=== PATIENT | male | born 1985 | race Caucasian/White ===

== ENCOUNTER 2024-03-31 21:58 | Emergency (ER) | payer OTHER ==
[~2024-03-31] VITALS: Ht 182.9 cm; Wt 86.2 kg
[2024-04-01] MEDS ORDERED: ACETAMINOPHEN ES 500 MG TABLET ONE (00:02)
[2024-04-01] MEDS ORDERED: IBUPROFEN 400 MG TABLET ONE (00:02)
[2024-04-01] MEDS: IBUPROFEN 400 MG TABLET PO ONE (00:06)
[2024-04-01] MEDS: ACETAMINOPHEN ES 500 MG TABLET PO ONE (00:06)
[2024-04-01] MEDS ORDERED: KETO10TA2 PO (01:35)
[2024-04-01] MEDS ORDERED: ACET-2030 PO (01:35)
[2024-04-01 01:50] VITALS: BP 130/72; TEMP 98.1; O2SAT 98
== END 2024-04-01 01:50 | disposition home or self-care (01) ==
LOC: ER 22:01
DX: M75.101 Unspecified rotator cuff tear or rupture of right shoulder, not specified as traumatic (principal); M79.661 Pain in right lower leg; M25.531 Pain in right wrist; V23.49XA Other motorcycle driver injured in collision with car, pick-up truck or van in traffic accident, initial encounter; Y93.89 Activity, other specified; Y92.488 Other paved roadways as the place of occurrence of the external cause; Y99.8 Other external cause status
CPT/HCPCS: 73110; 73200-TC; 73620-TC